=== PATIENT | female | born 1960 | race Caucasian/White ===

== ENCOUNTER 2016-05-15 12:56 | Emergency (ER) | payer BC ==
[2016-05-15 14:22] VITALS: BP 113/64
--- NOTE | 2016-05-15 14:52 | UC ---
Throat Pain/Nasal Salty HPI - HPI Summary HPI Summary: 56 female presents with complaints of sinus congestion, nasal congestion, coughing and headache that began approximately 1 week ago. Patient states she gets sinus infections around this time of year often and she tried preventing them by taking antihistamine and using saline nasal spray. She has been using both the past week and has tried taking Mucinex without relief. She has been unable to sleep due to the discomfort. The pressure increases when she bends over, admits to dental and eye pressure. States she can not relieve the pressure because nothing will come out. Denies fever/chills, SOB, chest pain, vomiting and diarrhea. - History of Current Complaint Chief Complaint: UCGeneralIllness Stated Complaint: SINUS Time Seen by Provider: 05/15/16 14:33 Hx Obtained From: Patient ?: No Onset/Duration: Sudden Onset, Lasting Weeks, Still Present Pain Intensity: 7 Pain Scale Used: 0-10 Numeric Cough: Productive Associated Signs & Symptoms: Positive: Sinus Discomfort, Nasal Discharge - Allergies/Home Medications Allergies/Adverse Reactions: Allergies Allergy/AdvReac Type Severity Reaction Status Date / Time No Known Allergies Allergy Verified 05/15/16 14:13 PMH/Surg Hx/FS Hx/Imm Hx - Surgical History Surgical History: None Surgery Procedure, Year, and Place: bilateral carpal tunnel surgery - Social History Alcohol Use: None Substance Use Type: None Smoking Status (MU): Never Smoked Tobacco - Immunization History Vaccination Up to Date: Yes Review of Systems Constitutional: Negative Skin: Negative Eyes: Negative ENT: Sore Throat, Ear Ache, Nasal Discharge Respiratory: Cough Cardiovascular: Negative Gastrointestinal: Other - nausea, intermittently Motor: Negative Neurovascular: Negative Musculoskeletal: Negative Neurological: Headache All Other Systems Reviewed And Are Negative: Yes Physical Exam Triage Information Reviewed: Yes Appearance: No Pain Distress, Well-Nourished, Ill-Appearing - sounded congested when speaking Vital Signs: Initial Vital Signs Temp 99.4 F 05/15/16 14:15 Pulse 71 05/15/16 14:15 Resp 16 05/15/16 14:15 BP 113/64 05/15/16 14:15 Pulse Ox 97 05/15/16 14:15 Vital Signs Reviewed: Yes Eyes: Positive: Conjunctiva Clear ENT: Positive: Hearing grossly normal, Pharyngeal erythema - post nasal drip noted, Nasal congestion, Nasal drainage, TMs normal. Negative: Tonsillar swelling, Tonsillar exudate Dental: Positive: Percussion Tenderness @ - maxillary and frontal bilateral. Negative: Cervical Lymphadenopathy Neck: Positive: Supple, Nontender, No Lymphadenopathy Respiratory: Positive: Chest non-tender, Lungs clear, Normal breath sounds, No respiratory distress, No accessory muscle use Cardiovascular: Positive: RRR, No Murmur, Pulses Normal, Brisk Capillary Refill Abdominal Exam: Normal Abdomen Description: Positive: Nontender, No Organomegaly, Soft Bowel Sounds: Positive: Present Musculoskeletal Exam: Normal Musculoskeletal: Positive: Strength Intact, ROM Intact, No Edema Neurological Exam: Normal Psychological Exam: Normal Skin Exam: Normal Throat Pain/Nasal Course/Dx - Course Course Of Treatment: due to PE findings and attempting OTC measures without relief, patient will be given augmentin and flonase. continue saline rinses. stop antihistamine until symptoms resolve. aware of worsening signs and symptoms to watch out for. - Differential Dx/Diagnosis Differential Diagnosis/HQI/PQRI: Influenza, Laryngitis, Otitis Media, Pharyngitis, Sinusitis, Tonsillitis, URI Provider Diagnoses: acute sinusitis Discharge - Discharge Plan Condition: Stable Disposition: HOME Prescriptions: Amoxicillin/Clavulanate TAB* [Augmentin TAB 875*] 875 mg PO BID #20 tab Fluticasone NASAL SPRAY 50MCG* [Flonase NASAL SPRAY 50MCG*] 2 spray BOTH NARES DAILY #1 btl Patient Education Materials: Sinusitis (ED) Referrals: Diana Liao MD [Primary Care Provider] - Additional Instructions: Take prescribed antibiotic until entire dose is finished. Recommend taking with food to avoid upset stomach, and taking probiotic pills in between doses to replenish normal lashell. Use flonase twice daily as needed for nasal congestion. Also recommend use of rory pot's or saline nasal spray. Drink plenty of fluids and wash hands frequently. Humidified air or hot showers may help relieve you symptoms. You may continue use of Dayquil Ibuprofen/Aleve as needed. If symptoms do not improve or worsen please seek medical attention.
== END 2016-05-15 15:03 | disposition home or self-care (01) ==
LOC: UCCORT 12:56
DX: J01.90 Acute sinusitis, unspecified (principal)
CPT/HCPCS: 99212; G0463

== ENCOUNTER 2017-03-29 19:21 | Emergency (ER) | payer BC ==
[2017-03-29 21:03] VITALS: BP 108/80
--- NOTE | 2017-03-29 21:22 | UC ---
Throat Pain/Nasal Salty HPI - HPI Summary HPI Summary: h/o recurrent sinus infection pt with sinus pressure x 8 days using sinutab with little improvement Fri started with mucinex now with increased congestion no fevers, last night felt chills ear fullness pain + dental pain + PND with sore throat very fatgigue last abx: Oct 2016 travelling by plane Sat Pt's medciations reviewed this visit - History of Current Complaint Chief Complaint: UCGeneralIllness Stated Complaint: SINUS COMPLAINT Time Seen by Provider: 03/29/17 21:19 Hx Obtained From: Patient Onset/Duration: Gradual Onset Pain Intensity: 4 Cough: Nonproductive Associated Signs & Symptoms: Positive: Negative - Allergies/Home Medications Allergies/Adverse Reactions: Allergies Allergy/AdvReac Type Severity Reaction Status Date / Time No Known Allergies Allergy Verified 03/29/17 21:03 PMH/Surg Hx/FS Hx/Imm Hx Previously Healthy: Yes - Surgical History Surgical History: Yes Surgery Procedure, Year, and Place: bilateral carpal tunnel surgery - Social History Occupation: Employed Full-time Lives: With Family Alcohol Use: None Substance Use Type: None Smoking Status (MU): Never Smoked Tobacco - Immunization History Vaccination Up to Date: Yes Review of Systems Constitutional: Fatigue ENT: Sore Throat, Nasal Discharge, Sinus Congestion, Sinus Pain/Tenderness All Other Systems Reviewed And Are Negative: Yes Physical Exam Triage Information Reviewed: Yes Appearance: Well-Appearing, No Pain Distress Vital Signs: Initial Vital Signs Temp 98.1 F 03/29/17 20:59 Pulse 93 03/29/17 20:59 Resp 18 03/29/17 20:59 BP 108/80 03/29/17 20:59 Pulse Ox 100 03/29/17 20:59 Vital Signs Reviewed: Yes Eye Exam: Normal Eyes: Positive: Conjunctiva Clear ENT Exam: Normal ENT: Positive: Nasal congestion, Sinus tenderness - max R>L, Other - fluid TM R> L , no erythema turbinates inflammed and boggy + PND Dental Exam: Normal Neck exam: Normal Neck: Positive: Supple, Nontender Respiratory Exam: Normal Respiratory: Positive: Lungs clear, Normal breath sounds, No respiratory distress, No accessory muscle use Cardiovascular Exam: Normal Abdominal Exam: Normal Musculoskeletal Exam: Normal Neurological Exam: Normal Psychological Exam: Normal Skin Exam: Normal Throat Pain/Nasal Course/Dx - Course Assessment/Plan: 8 days progressive sinus pressure and discharge. + TTP. Pt with h/o recurrent infections. little improvement with symptomatic treat. abx. flonase. secretion precaution. humidify. pt gets yeast - Rx diflucan. return precautions - Differential Dx/Diagnosis Provider Diagnoses: sinusitis Discharge - Discharge Plan Condition: Stable Disposition: HOME Prescriptions: Amoxicillin/Clavulanate TAB* [Augmentin TAB 875*] 875 mg PO BID #20 tab Fluconazole 150 MG (NF) [Diflucan 150 mg (NF)] 150 mg PO ONCE #1 tab Fluticasone NASAL SPRAY 50MCG* [Flonase NASAL SPRAY 50MCG*] 2 spray BOTH NARES DAILY #1 btl Patient Education Materials: Rhinosinusitis (ED) Referrals: No Primary Care Phys,NOPCP [Primary Care Provider] - Additional Instructions: - Stay well hydrated. Drink plenty of non-alcoholic, non-caffinated beverages. - Alternate ibuprofen (Advil, Motrin) 600mg and Tylenol every 3 hours for pain or fever. Take with food. Do NOT take for more than 4-5 days. - These infections are spread by secretions - do NOT share eating or drinking utensils - clean items you share with other people such as cell phones, computer mouse, TV remote, computer tablets, etc. After you have taken antibiotics for 2 days, change your toothbrush and your pillowcase. - get plenty of restful sleep - humidify the air in the room where you sleep - boil water, run a hot steam shower, vaporizer, cups of water by heat register - okay to take over the counter decongestant and cough medication - use nasal spray as instructed - apply moist heat to your face to help with discomfort - contact your doctor or return with questions or concerns
[2017-03-29] MEDS ORDERED: Amoxicillin/Clavulanate TAB* 875 MG PO ONE (21:36)
== END 2017-03-29 21:42 | disposition home or self-care (01) ==
LOC: UCCORT 19:21
DX: J32.9 Chronic sinusitis, unspecified (principal)
CPT/HCPCS: 99212; A9270-GY; G0463

== ENCOUNTER 2018-01-24 15:30 | Emergency (ER) | payer BC ==
[2018-01-24 16:27] VITALS: BP 142/80
--- NOTE | 2018-01-24 16:40 | UC ---
Respiratory Complaint HPI - HPI Summary HPI Summary: She is a 57-year-old female with a greater than 2 week history of sinus pressure and pain associated with postnasal drip and facial pressure. She has not had a fever. She has had low energy. She has had a nonproductive cough. She denies any fever or chills. She denies any nausea vomiting or diarrhea. - History of Current Complaint Chief Complaint: UCGeneralIllness Stated Complaint: SINUS COMPLAINT Time Seen by Provider: 01/24/18 16:34 Hx Obtained From: Patient Onset/Duration: Gradual Onset, Lasting Weeks Timing: Constant Severity Initially: Mild Severity Currently: Moderate Pain Intensity: 0 Pain Scale Used: 0-10 Numeric Character: Cough: Nonproductive Aggravating Factors: Nothing Alleviating Factors: Nothing Associated Signs And Symptoms: Positive: Nasal Congestion, Hoarseness, Sinus Discomfort - Allergies/Home Medications Allergies/Adverse Reactions: Allergies Allergy/AdvReac Type Severity Reaction Status Date / Time No Known Allergies Allergy Verified 01/24/18 16:27 PMH/Surg Hx/FS Hx/Imm Hx Previously Healthy: Yes Neurological History: Migraine - Surgical History Surgical History: Yes Surgery Procedure, Year, and Place: bilateral carpal tunnel surgery - Family History Known Family History: Positive: Hypertension, Diabetes, Other - cancer - Social History Alcohol Use: Occasionally Substance Use Type: None Smoking Status (MU): Never Smoked Tobacco - Immunization History Vaccination Up to Date: Yes Review of Systems All Other Systems Reviewed And Are Negative: Yes Constitutional: Positive: Fatigue Skin: Positive: Negative Eyes: Positive: Negative ENT: Positive: Nasal Discharge, Sinus Congestion, Sinus Pain/Tenderness Respiratory: Positive: Cough Cardiovascular: Positive: Negative Gastrointestinal: Positive: Negative Genitourinary: Positive: Negative Motor: Positive: Negative Neurovascular: Positive: Negative Musculoskeletal: Positive: Negative Neurological: Positive: Negative Psychological: Positive: Negative Physical Exam Triage Information Reviewed: Yes Appearance: Well-Appearing, No Pain Distress, Well-Nourished Vital Signs: Initial Vital Signs Temp 98.2 F 01/24/18 16:24 Pulse 73 01/24/18 16:24 Resp 15 01/24/18 16:24 BP 142/80 01/24/18 16:24 Pulse Ox 100 01/24/18 16:24 Vital Signs Reviewed: Yes Eyes: Positive: Conjunctiva Clear ENT: Positive: Hearing grossly normal, Nasal congestion, Nasal drainage, Sinus tenderness - r.l, Uvula midline. Negative: Tonsillar swelling, Tonsillar exudate Neck: Positive: Supple, Nontender Respiratory: Positive: Lungs clear, Normal breath sounds, No respiratory distress Cardiovascular: Positive: RRR, No Murmur Musculoskeletal: Positive: ROM Intact, No Edema Neurological: Positive: Alert Psychological Exam: Normal Skin Exam: Normal UC Diagnostic Evaluation - Laboratory O2 Sat by Pulse Oximetry: 100 - normal not hypoxic Respiratory Course/Dx - Differential Dx/Diagnosis Provider Diagnosis: Acute sinusitis Discharge - Sign-Out/Discharge Documenting (check all that apply): Patient Departure All imaging exams completed and their final reports reviewed: No Studies - Discharge Plan Condition: Stable Disposition: HOME Prescriptions: Amoxicillin/Clavulanate TAB* [Augmentin TAB 875*] 875 mg PO BID #20 tab Fluticasone NASAL SPRAY 50MCG* [Flonase NASAL SPRAY 50MCG*] 2 spray BOTH NARES BID #1 btl Patient Education Materials: Sinusitis (ED) Referrals: Diana Liao MD [Primary Care Provider] - (recheck next week if not back to normal) - Billing Disposition and Condition Condition: STABLE Disposition: Home
== END 2018-01-24 16:48 | disposition home or self-care (01) ==
LOC: UCCORT 15:30
DX: J01.90 Acute sinusitis, unspecified (principal)
CPT/HCPCS: 99212; G0463

== ENCOUNTER 2019-01-06 12:22 | Emergency (ER) | payer BC ==
--- OUTSIDE RECORDS SUMMARY | 2019-01-06 13:05 | XMS REPORT | Continuity of Care Document ---
:1960 External Reference #:[id number] Author Name Diana Liao MD Address [address] [address] Care Team Providers Name Role Phone Giovanny Menjivar - Neurology Care Team Information Geoscience Technician [phone] Problems Active Problems Provider Date Degenerative joint disease involving multiple Diana Liao MD Onset: 07/2013 joints Vitamin D deficiency Diana Liao MD Onset: 02/26/2011 Vesicular eczema of hands and/or feet Diana Liao MD Onset: 02/26/2011 Simple phobia Diana Liao MD Onset: 02/20/2010 Acne Diana Liao MD Onset: 01/29/2009 Migraine without aura, not refractory Diana Liao MD Onset: 01/29/2009 Anxiety state Diana Liao MD Onset: 10/13/2018 Flying phobia Diana Liao MD Onset: 05/02/2018 Social History Type Date Description Comments Sex Unknown Tobacco Use Start: Unknown Never Smoked Cigarettes ETOH Use Occasionally consumes alcohol Tobacco Use Start: Unknown Patient has never smoked Recreational Drug Use Denies Drug Use Smoking Status Reviewed: 05/02/18 Patient has never smoked Exercise Type/Frequency Exercises regularly Exercises regularly, Tennis, biking running, yoga , jazzercise; 04/28/15 counselled 150min per week 10k steps per day [facility] Allergies, Adverse Reactions, Alerts Active Allergies Reaction Severity Comments Date NKDA 10/05/2016 Seasonal 04/22/2014 Medications Active Medications SIG Qnty Indications Ordering Provider Date Sertraline HCL 1 by mouth every 30tabs F41.9 Diana Liao, 10/13/2018 50mg day MD Tablets Fluticasone 2 sprays to each 16gm J06.9 Diana Liao, 10/05/2016 Propionate nostril daily 50mcg/Act Suspension Probiotic & 1 by mouth qd OTC J01.40 Diana Liao, 05/06/2014 Acidophilus Formula MD Extra Strength Capsules Vitamin D3 1 by mouth daily 30tabs 268.9 Diana Liao, 04/22/2014 2000Unit after dinner with MD Tablets meat fat or oil Sumatriptan take 1 tablet 10tabs G43.009 Diana Liao, 01/29/2009 Succinate with Onset Of MD 50mg Headache may Tablets repeat after 2 hours maximum daily dose of 4 Alprazolam 1/2 - 1 po q 8 10tabs F40.243 Diana Liao, 11/23/2007 0.5mg hours prn for MD Tablets fear of flying, take 1 hour prior to boarding, caution sedation, disinhibition,add iction, do not drive Topiramate 1 by mouth daily 180Tabs G43.009 Menjivar, Giovanny 100mg Tablets Minocycline HCL 1 by mouth daily 30caps L70.9 Diana Liao, 100mg MD Capsules History Medications Sertraline HCL 1 by mouth 30tabs F41.9 Diana Liao MD 09/15/2018 - 25mg daily 10/13/2018 Tablets Immunizations CPT Code Status Date Vaccine Reaction Lot # 91172 Given 04/28/2016 Tdap (Adacel) Ages 7 And Im inj completed, Pt [id number] Above Only tolerated well 52870 Given 02/14/2005 Tetanus And Diptheria Toxoid 7 Years And Older Preserv Free [id number] Refused 09/15/2018 Flu Vaccine NOS Q2039 Refused 05/02/2018 Flu Vaccine NOS 80779 Refused 05/02/2018 Shingrix (Shingles) Zoster aware can get at pharmacy Vaccine HZV, Recombinant, Subunit, Adj Q2039 Refused 04/29/2017 Flu Vaccine NOS 46359 Refused 04/28/2016 Influenza Virus Vaccine,Quadrivalent,Split,Prese rv Free, 0.5mL,[place] [address] Refused 04/28/2015 Influenza Virus DOESN'T WANT Vaccine,Quadrivalent,Split,Prese rv Free, 0.5mL,[place] [address] Refused 04/22/2014 Tdap (Adacel) Ages 7 And Above Only Vital Signs Date Vital Result Comment 11/20/2018 3:52pm Weight 147.00 lb Heart Rate 72 /min BP Systolic 120 mmHg BP Diastolic 70 mmHg Respiratory Rate 16 /min Height 66.25 inches 5'6.25" BMI (Body Mass Index) 23.5 kg/m2 10/13/2018 1:24pm Weight 146.00 lb Heart Rate 74 /min BP Systolic 130 mmHg BP Diastolic 80 mmHg Respiratory Rate 16 /min Height 66.25 inches 5'6.25" BMI (Body Mass Index) 23.4 kg/m2 Results Test Date Facility Test Result H/L Range Note CBC with Auto Diff-[facility] 09/18/2018 [facility] WBC 3.2 K/uL Low 4.1-11.0 1 RBC 4.64 M/uL 4.00-5.40 Hemoglobin 14.4 gm/dL 12.0-16.0 Hematocrit 43.5 % 36.0-47.0 MCV 93.6 fL 80.0-97.0 MCH 31.1 pg 27.0-32.0 MCHC 33.2 g/dL 32.0-36.0 RDW 13.5 % 11.5-14.5 PLT Count 182 K/ul 140-400 MPV 9.4 FL 7.1-10.7 Neutrophil 51.4 % 35.0-75.0 Lymphocyte 38.6 % 16.0-52.0 Monocyte 6.9 % 2.0-10.0 Eosinophil 1.6 % 0.0-5.0 Basophil 1.5 % 0.0-4.0 Abs Neutrophils 1.7 K/uL Low 2.1-8.0 Abs Lymphocytes 1.2 K/uL 0.8-5.5 Abs Monocytes 0.2 K/uL 0.1-1.0 Abs Eosinophils 0.1 K/uL 0.0-0.5 Abs Basophils 0.0 K/uL 0.0-0.3 Laboratory test finding 09/18/2018 [facility] TSH 2.16 uIU/mL 0.35-4.94 Comprehensive Met Panel-[facility] 09/18/2018 [facility] Sodium 143 mmol/L 135- 146 2 Potassium 4.2 mmol/L 3.5-5.2 Chloride# 111 mmol/L High 97-110 3 Carbon Dioxide 20 mmol/L Low 24-34 Calcium 9.6 mg/dL 8.5-10.5 4 Glucose 91 mg/dL 70-105 BUN 24 mg/dL 6-26 Creatinine 1.0 mg/dL 0.5-1.4 Total Protein 6.4 g/dL 6.0-8.0 Albumin 4.4 g/dL 3.6-4.9 Globulin 2.0 g/dL 2.0-3.5 A/G Ratio 2.2 Ratio 1.0-2.2 Total Bilirubin 0.4 mg/dL 0.1-1.3 Alkaline Phosphatase 68 U/L 24-140 Alt 15 U/L 3-42 Ast 16 U/L 8-42 Anion Gap 12 mmol/L 5-15 5 Female Egfr 65 >60 6 Male Egfr 86 >60 7 Laboratory test finding 09/18/2018 [facility] Vitamin B12 374 pg/mL 180- 914 1 today or schedule 2 Updated reference range on new analyzer 3 Updated reference range on new analyzer 4 Updated reference range 06-14-2018 5 Updated Reference Range 6 Concerning GFR Guidelines for Americans: Normal function or mild renal disease, if clinically at risk: >/= 60 mL/min Moderately decreased: 30-59 Severely decreased: 15-29 Renal failure: <15 There is reduced accuracy above 60ml/min/1.73 m squared, but the numeric value may be clinically useful in the near 60 range 7 Concerning GFR Guidelines: Normal function or mild renal disease, if clinically at risk: >/= 60 mL/min Moderately decreased: 30-59 Severely decreased: 15-29 Renal failure: <15 There is reduced accuracy above 60ml/min/1.73 m squared, but the numeric value may be clinically useful in the near 60 range Glomerular Filtration Rate (GFR) is estimated based on the CKD-EPI equation, which assumes a steady state for creatinine as recommended by the National Kidney Disease Education Program in conjunction with the National Institutes of Health and the National Kidney Foundation. Clinical conditions in which it may be necessary to measure GFR by using clearance methods include extremes of age and body size, severe malnutrition or obesity, diseases of skeletal muscle, paraplegia or quadriplegia, vegetarian diet, rapidly changing kidney function, and calculation of the dose of potentially toxic drugs that are excreted by the kidneys. Procedures Date Code Description Status 11/20/2018 79532 Brief Emotional/Behav Assessment W/ Scoring Doc Per Completed Standard Inst 10/13/2018 31257 Brief Emotional/Behav Assessment W/ Scoring Doc Per Completed Standard Inst 09/15/2018 28913 Brief Emotional/Behav Assessment W/ Scoring Doc Per Completed Standard Inst 06/01/2018 [id number] Mammogram Completed 09/27/2017 [id number] Colonoscopy Completed 04/29/2017 [id number] Mammogram Completed 04/22/2014 [id number] Mammogram Completed 02/14/2007 [id number] Bone Mineral Density Test Completed Medical Devices Description No Information Available Encounters Type Date Location Provider Dx Diagnosis Office Visit 10/13/2018 [facility] Diana Liao F41.9 Anxiety disorder, 1:15p unspecified G43.009 Migraine w/o aura, not intractable, w/o status migrainosus Office Visit 09/15/2018 2:45p [facility] Diana Liao MD F41.9 Anxiety disorder, unspecified L70.9 Acne, unspecified Assessments Date Code Description Provider 11/20/2018 F41.9 Anxiety disorder, unspecified Diana Liao MD 10/13/2018 F41.9 Anxiety disorder, unspecified Diana Liao MD 10/13/2018 G43.009 Migraine without aura, not intractable, Diana Liao MD without status migra 09/18/2018 F41.9 Anxiety disorder, unspecified Diana Liao MD 09/18/2018 F41.9 Anxiety disorder, unspecified Schedule, Laboratory 09/18/2018 F41.9 Anxiety disorder, unspecified [facility] 09/15/2018 F41.9 Anxiety disorder, unspecified Diana Liao MD 09/15/2018 L70.9 Acne, unspecified Diana Liao MD Plan of Treatment Future Appointment(s):02/16/2019 11:30 am - Diana Liao MD at [facility]2018 - Diana Liao MDF41.9 Anxiety disorder, unspecifiedComments:improved anxiety HEIDI 16, then 6 now 5continue counselling. continue sertraline 50mg daily cautionedrisks for seratonin syndrome with sumatriptan, just be careful when takes that for migraines, watch for sxs of elev hr, bp, temp, sweating, call if a concern. advised lifestyle approached with healthy diet, daily exercise, routine sleep cycle, adequate hydrationDiscussed use of daily meds to help withdaily anxiety symptoms. advised gi se and sexual dysfunction.Follow up:next visit in 80-90 daysfor 3 mo for anxiety fu, HEIDI, PHQ9 oc15 Functional Status Description No Information Available Mental Status Description No Information Available Referrals Description No Information Available
[2019-01-06 13:11] VITALS: BP 119/73
--- NOTE | 2019-01-06 13:29 | UC ---
Throat Pain/Nasal Salty HPI - HPI Summary HPI Summary: 58-year-old female who has had head congestion and sinus symptoms worsening over the past 2 weeks. She also complains of postnasal drainage but denies any fever or chills. - History of Current Complaint Chief Complaint: UCRespiratory Stated Complaint: SINUS Time Seen by Provider: 01/06/19 13:05 Hx Obtained From: Patient ?: No Onset/Duration: Gradual Onset Severity: Mild Pain Intensity: 4 Cough: Nonproductive Associated Signs & Symptoms: Positive: Sinus Discomfort, Nasal Discharge - Allergies/Home Medications Allergies/Adverse Reactions: Allergies Allergy/AdvReac Type Severity Reaction Status Date / Time No Known Allergies Allergy Verified 01/06/19 13:07 Home Medications: Home Medications Guaifenesin/Pseudoephedrne HCl [Mucinex D] 1 tab PO Q12H PRN 01/06/19 [History Confirmed 01/06/19] PMH/Surg Hx/FS Hx/Imm Hx Previously Healthy: Yes - Surgical History Surgical History: Yes Surgery Procedure, Year, and Place: bilateral carpal tunnel surgery - Family History Known Family History: Positive: Hypertension, Diabetes, Other - cancer - Social History Alcohol Use: Occasionally Substance Use Type: None Smoking Status (MU): Never Smoked Tobacco - Immunization History Vaccination Up to Date: Yes Review of Systems All Other Systems Reviewed And Are Negative: Yes ENT: Positive: Nasal Discharge, Sinus Congestion, Sinus Pain/Tenderness Respiratory: Positive: Cough - Nonproductive cough. Is Patient Immunocompromised?: No Physical Exam Triage Information Reviewed: Yes Appearance: Well-Appearing, No Pain Distress, Well-Nourished Vital Signs: Initial Vital Signs Temp 97.7 F 01/06/19 13:05 Pulse 70 01/06/19 13:05 Resp 16 01/06/19 13:05 BP 119/73 01/06/19 13:05 Pulse Ox 99 01/06/19 13:05 Vital Signs Reviewed: Yes Eyes: Positive: Conjunctiva Clear ENT: Positive: Pharynx normal, Nasal congestion - Yellow purulent nasal coryza. , Nasal drainage - Yellow purulent postnasal drainage., TMs normal, Sinus tenderness - Tender over the maxillary sinuses bilaterally., Uvula midline Neck: Positive: Supple, Nontender, No Lymphadenopathy Respiratory: Positive: Lungs clear, Normal breath sounds, No respiratory distress, No accessory muscle use Cardiovascular: Positive: RRR, No Murmur, Pulses Normal, Brisk Capillary Refill Musculoskeletal Exam: Normal Neurological Exam: Normal Psychological Exam: Normal Skin Exam: Normal Throat Pain/Nasal Course/Dx - Course Course Of Treatment: Patient is comfortable here and nontoxic. I am going to treat her with Augmentin since she says that works very well for her she has a sinus infection. She only gets sinus infections about one time per year. - Differential Dx/Diagnosis Provider Diagnosis: Sinusitis Discharge ED - Sign-Out/Discharge Documenting (check all that apply): Patient Departure All imaging exams completed and their final reports reviewed: No Studies - Discharge Plan Condition: Fair Disposition: HOME Prescriptions: Amoxicillin/Clavulanate TAB* [Augmentin TAB 875*] 875 mg PO BID 10 Days #20 tab Patient Education Materials: Sinusitis (ED) Referrals: Diana Liao MD [Primary Care Provider] - Additional Instructions: Increase fluids, continue your present medications, take the Augmentin with food. Definite follow-up with your primary care provider in 3 or 4 days if no improvement. - Billing Disposition and Condition Condition: FAIR Disposition: Home
== END 2019-01-06 13:39 | disposition home or self-care (01) ==
LOC: UCCORT 12:22
DX: J32.9 Chronic sinusitis, unspecified (principal)
CPT/HCPCS: 99212; G0463